=== PATIENT | male | born 1965 | race Caucasian/White ===

== ENCOUNTER 2016-08-22 15:54 | Emergency (ER) | payer MEDICAID ==
[2016-08-22 16:03] VITALS: TEMP 97.3
[2016-08-22] MEDS ORDERED: FLUORESCEIN SODIUM 1 MG STRIP OP ONE ×2 (16:47→16:59)
[2016-08-22] MEDS ORDERED: PROPARACAINE 0.5% 15 ML OPHT DROP ONE (16:47)
[2016-08-22] MEDS ORDERED: PROPARACAINE 0.5% 15 ML OPHT DROP OP ONE (16:59)
--- NOTE | 2016-08-22 17:04 | EDPHY ---
H & P Smoking Status: Light smoker Time Seen by Provider: 08/22/16 16:40 HPI/ROS: HPI: 50-year-old male presents to emergency department with chief concern right eye irritation and discharge that onset suddenly 3 days ago. Reports 9/ 10 right eye irritation associated with purulent appearing discharge upon awakening for the past 3 days. Reports associated rhinorrhea and nasal congestion x4 days with frequent rubbing of his eye. Denies fever, chills, dizziness, headache, photophobia, recent infections or facial rashes, nausea or vomiting. Does not wear contacts. Reports seasonal allergies and increased watery discharge. Has been rubbing his eyes frequently. The past medical history notable for anxiety, psychiatric disorder, asthma, seasonal allergies, Coreas's palsy affecting the right eye. Has no primary care provider ROS:10 point review of systems is negative other than as stated in HPI (Taylor Rodriguez) Physical Exam: General: Awake, alert, calm, cooperative. No acute distress. Head: Normalocephalic. Atraumatic. EENT: PERRLA. EOMI. No pallor or injection. Anicteric. No nystagmus. Visual Acuity: 20/10 right, 20/20 left Pupils:[equal round and reactive to light] [EOMI] Lids: [no edema or swelling] Skin: [no proptosis, no periorbital erythema, rash or swelling, no vesicles] Conjunctivae: [mild injection, no discharge present] Cornea: [exam with slit lamp and fluorescein shows no uptake, no evidence of corneal abrasion, dendritic lesions, cells or flare] Anterior chamber:[normal, no hyphema or hypopyon] Neck: Supple, nontender. No lymphadenopathy. Full range of motion. Respiratory: Breathing unlabored. CV: Chest nontender, atraumatic. Heart rate regular. Neuro: Alert. Oriented x 3. Speech clear. Skin: Skin warm, dry, intact. No rashes, abrasions, or lacerations. Skin turgor normal. Extremities: Full range of motion in all 4 extremities. Mental status: Interactive, appropriate, well-groomed. (Taylor Rodriguez) Constitutional: Initial Vital Signs Temperature (C) 36.3 C 08/22/16 15:59 Heart Rate 92 08/22/16 15:59 Respiratory Rate 16 08/22/16 15:59 Blood Pressure 116/77 03/20/17 15:59 O2 Sat (%) 94 08/22/16 15:59 O2 Delivery Mode Room Air Allergies/Adverse Reactions: Penicillins Allergy (Intermediate, Verified 08/22/16 16:03) Rash Home Medications: Medication Instructions Recorded Abilify 06/01/14 Clonazepam 08/22/16 Erythromycin 0.5% 1 dennis RTEYE HS #2 opht.oint 08/22/16 Gabapentin 08/22/16 Gentamicin 0.3% [Gentak 0.3% Opht 2 drop RTEYE QID #1 bottle 08/22/16 Drops (RX)] Medical Decision Making ED Course/Re-evaluation: 50-year-old male presents to emergency department with 3 days of increased redness, purulent drainage in the mornings, irritation of the right eye. No evidence of corneal abrasion or fluorescein uptake. I believe his symptoms are consistent with a conjunctivitis. This male has no primary care provider. He has a history of Coreas's palsy. I will have him follow up with Ophthalmology for recheck this week. Gentamicin eye drops and erythromycin ointment at HS x2 nights have been prescribed. Patient has been counseled regarding importance of follow-up and agrees to do so. (Taylor Rodriguez) Differential Diagnosis: Differential includes but not limited to conjunctivitis, foreign body, keratitis , scleritis, episcleritis, corneal ulcer, glaucoma, uveitis (Tayolr Rodriguez) - Data Points Medications Given: Discontinued Medications Fluorescein Sodium ([id number]) 1 mg OP EDNOW ONE Stop: 08/22/16 17:00 Last Admin: 08/22/16 17:04 Dose: 1 mg Proparacaine HCl (Alcaine 0.5%) 1 drops OP EDNOW ONE Stop: 08/22/16 17:00 Last Admin: 08/22/16 17:04 Dose: 1 drop Departure - Departure Disposition: Home, Routine, Self-Care Clinical Impression: Redness of eye, right Conjunctivitis Qualifiers: Conjunctivitis type: acute Acute conjunctivitis type: viral Laterality: right Qualified Code(s): B30.9 - Viral conjunctivitis, unspecified Condition: Good Instructions: Conjunctivitis (ED) Additional Instructions: Plan: Please follow up with the word processor listed in your paperwork Dr. Noonan within the next 1-2 days for recheck without fail, it is imperative that you do this, especially with your history of Coreas's Palsy--When you call to schedule appointment, please let the office know you are an "ER follow up" appointment" Get established with a primary care provider-call [facility], the name of [facility] and the number is in your paperwork Use antibiotic eye drops in your right eye as directed for 24 hours after symptoms resolve Use antibiotic ointment in your eye tonight and tomorrow night at bedtime-place a thin ribbon in the lower lid Return for recheck for worsening symptoms Referrals: NONE *PRIMARY CARE P,. [Primary Care Provider] - As per Instructions Rosales Noonan MD [Medical Doctor] - As per Instructions [facility] [Outside] - As per Instructions Prescriptions: Erythromycin 0.5% 1 dennis RTEYE HS #2 opht.oint Gentamicin 0.3% [Gentak 0.3% Opht Drops (RX)] 2 drop RTEYE QID #1 bottle
[2016-08-22 17:23] VITALS: BP 114/72; PULSE 82; RESP 18; O2SAT 97
== END 2016-08-22 17:23 | disposition home or self-care (01) ==
DX: B30.9 Viral conjunctivitis, unspecified (principal); F17.200 Nicotine dependence, unspecified, uncomplicated

== ENCOUNTER 2016-10-15 09:39 | Emergency (ER) | payer MEDICAID ==
[2016-10-15 09:44] VITALS: TEMP 97.7
[2016-10-15] MEDS ORDERED: LORazepam 2 MG/ML INJ IVP ONE (09:52)
[2016-10-15] MEDS ORDERED: NS 1,000 ML IV ONE (09:52)
--- NOTE | 2016-10-15 09:56 | EDPHY ---
H & P Stated Complaint: snorted meth/first time/tachycardia/anxious Time Seen by Provider: 10/15/16 09:45 HPI/ROS: Chief Complaint: Anxious, tachycardic, cough HPI: 51-year-old male presenting complaining of "not feeling good" after inhaling meth for the 1st time about 30 minutes ago. Patient states that he has had bronchitis type symptoms for the last week it is coughing yellow sputum is not been getting better. He states that he was offered meth for the 1st time this morning and tried. Since then has been feeling tachycardic, jumpy injury, generally not feeling well. He does have some pain in his upper back that this started before he took the meth has been associated with his coughing. No central chest pain. No shortness of breath. No nausea or vomiting. Some subjective chills at home. ROS: 10 point Review of Systems is negative except as noted in the HPI. PMH: Depression, asthma Social History: Positive for smoking, occasional alcohol, uses meth for the 1st time today Family History: non-contributory Physical Exam: Gen: Awake, Alert, anxious appearing, tachycardia HEENT: Nose: no rhinorrhea Eyes: PERRLA, EOMI Mouth: Moist mucosa Neck: Supple, no JVD Chest: nontender, lungs clear to auscultation Heart: S1, S2 normal, no murmur Abd: Soft, non-tender, no guarding Back: no CVA tenderness, no midline tenderness Ext: no edema, non-tender Skin: no rash Neuro: CN II-XII intact, Sensation grossly intact, Strength 5/5 in bilateral upper and lower extremities - Personal History Current Tetanus/Diphtheria Vaccine: Yes Tetanus Vaccine Date: 2014 - Medical/Surgical History Hx Asthma: Yes Hx Chronic Respiratory Disease: No Hx Diabetes: No Hx Cardiac Disease: No Hx Renal Disease: No Hx Cirrhosis: No Hx Alcoholism: No Hx HIV/AIDS: No Hx Splenectomy or Spleen Trauma: No Other PMH: Anxiety, psychiatric disorder NOS, orthoscopic knee surgery on left knee, nasal Fx, asthmatic, marijuana user. - Social History Smoking Status: Light smoker Constitutional: Initial Vital Signs Temperature (C) 36.5 C 10/15/16 09:43 Heart Rate 118 H 10/15/16 09:43 Respiratory Rate 24 H 10/15/16 09:43 Blood Pressure 115/77 10/15/16 09:43 O2 Sat (%) 99 10/15/16 09:43 O2 Delivery Mode Room Air Allergies/Adverse Reactions: Penicillins Allergy (Intermediate, Verified 10/15/16 09:42) Rash Home Medications: Medication Instructions Recorded Gabapentin 08/22/16 Medical Decision Making - Diagnostics EKG Interpretation: ECG time 9:57 a.m., sinus rhythm with a rate of 98, normal axis, normal intervals, no ST or T-wave changes. Impression: Normal ECG. Imaging Results: Imaging Impressions Chest X-Ray 10/15/16 09:53 Impression: No evidence of acute cardiopulmonary abnormality. Imaging: I viewed and interpreted images myself ED Course/Re-evaluation: 51-year-old male who is with symptoms consistent with bronchitis. Negative chest x-ray. He tried meth for the 1st time today is having an adverse effect from that. I have counseled him that perhaps this is not a good idea for him to pursue in the future. He states he agrees and does not want to try it again. Will discharge with follow-up with primary care physician. - Data Points Laboratory Results: Laboratory Results 10/15/16 09:55 10/15/16 09:55 10/15/16 10/15/16 09:55 09:55 WBC 7.56 10^3/uL 10^3/uL (3.80-9.50) RBC 4.69 10^6/uL 10^6/uL (4.40-6.38) Hgb 15.3 g/dL g/dL (13.7-17.5) Hct 44.3 % % (40.0-51.0) MCV 94.5 fL fL (81.5-99.8) MCH 32.6 pg pg (27.9-34.1) MCHC 34.5 g/dL g/dL (32.4-36.7) RDW 11.9 % % (11.5-15.2) Plt Count 179 10^3/uL 10^3/uL (150-400) MPV 9.9 fL fL (8.7-11.7) Neut % (Auto) 58.0 % % (39.3-74.2) Lymph % (Auto) 31.7 % % (15.0-45.0) [place] % (Auto) 6.6 % % (4.5-13.0) Eos % (Auto) 2.9 % % (0.6-7.6) Baso % (Auto) 0.5 % % (0.3-1.7) Nucleat RBC Rel Count 0.0 % % (0.0-0.2) Absolute Neuts (auto) 4.38 10^3/uL 10^3/uL (1.70-6.50) Absolute Lymphs (auto) 2.40 10^3/uL 10^3/uL (1.00-3.00) Absolute Monos (auto) 0.50 10^3/uL 10^3/uL (0.30-0.80) Absolute Eos (auto) 0.22 10^3/uL 10^3/uL (0.03-0.40) Absolute Basos (auto) 0.04 10^3/uL 10^3/uL (0.02-0.10) Absolute Nucleated RBC 0.00 10^3/uL 10^3/uL (0-0.01) Immature Gran % 0.3 % % (0.0-1.1) Immature Gran # 0.02 10^3/uL 10^3/uL (0.00-0.10) Sodium 138 mEq/L mEq/L (134-144) Potassium 4.0 mEq/L mEq/L (3.5-5.2) Chloride 107 mEq/L mEq/L (97-110) Carbon Dioxide 22 mEq/l mEq/l (22-31) Anion Gap 9 mEq/L mEq/L (8-16) BUN 26 mg/dL H mg/dL (7-23) Creatinine 1.0 mg/dL mg/dL (0.7-1.3) Estimated GFR > 60 Glucose 109 mg/dL H mg/dL (70-100) Calcium 9.0 mg/dL mg/dL (8.5-10.4) Medications Given: Discontinued Medications Sodium Chloride (Ns) 1,000 mls @ 0 mls/hr IV ONCE ONE PRN Reason: Wide Open Stop: 10/15/16 09:53 Last Admin: 10/15/16 10:04 Dose: 1,000 mls Lorazepam (Ativan Injection) 1 mg IVP EDNOW ONE Stop: 10/15/16 09:53 Last Admin: 10/15/16 10:11 Dose: 1 mg Departure - Departure Disposition: Home, Routine, Self-Care Clinical Impression: Bronchitis, Methamphetamine abuse Condition: Good Instructions: Acute Bronchitis (ED), Methamphetamine Abuse (ED) Additional Instructions: You may take [id number] cough and cold medicines as needed for your symptoms of bronchitis. Please do not try methamphetamine again. Follow up with primary care physician in 3-4 days for re-evaluation. Referrals: Juan Johnson MD [Medical Doctor] - As per Instructions
--- NOTE | 2016-10-15 10:00 | CPEKG ---
Heart Rate: 98 RR Interval: 612 P-R Interval: 128 QRSD Interval: 82 QT Interval: 368 QTC Interval: 470 P [place]: 68 QRS [place]: 80 T Wave [place]: 41 EKG Severity - NORMAL ECG - EKG Impression: SINUS RHYTHM Electronically Signed By: Yudy Yousif 17-Oct-2016 17:17:26
[2016-10-15 10:04] LABS: % IMMATURE GRANULYOCYTES 0.3 % (0.0-1.1); ABSOLUTE IMMATURE GRANULOCYTES 0.02 10^3/uL (0.00-0.10); ADD DIFF? NO; ADD MORPH? NO; ADD SCAN? NO; ATYPICAL LYMPHOCYTE FLAG 10 (0-99); FRAGMENT RBC FLAG 0 (0-99); HEMATOCRIT 44.3 % (40.0-51.0); HEMOGLOBIN 15.3 g/dL (13.7-17.5); LEFT SHIFT FLG 0 (0-99); LIPEMIA HEMOLYSIS FLAG 90 (0-99); MEAN CELL HEMOGLOBIN 32.6 pg (27.9-34.1); MEAN CELL HEMOGLOBIN CONCENTR. 34.5 g/dL (32.4-36.7); MEAN CELL VOLUME 94.5 fL (81.5-99.8); MEAN PLATELET VOLUME 9.9 fL (8.7-11.7); PLATELET CLUMPS FLAG 0 (0-99); PLATELET COUNT 179 10^3/uL (150-400); RED BLOOD CELL COUNT 4.69 10^6/uL (4.40-6.38); RED CELL DISTRIBUTION WIDTH 11.9 % (11.5-15.2)
[2016-10-15 10:13] VITALS: O2SAT 98
[2016-10-15 10:38] LABS: ANION GAP 9 mEq/L (8-16); CARBON DIOXIDE 22 mEq/l (22-31); CHLORIDE 107 mEq/L (97-110); GLOMERULAR FILTRATION RATE > 60; GLUCOSE 109 mg/dL (70-100); SODIUM 138 mEq/L (134-144)
[2016-10-15 11:20] VITALS: BP 110/72; PULSE 88; RESP 16
== END 2016-10-15 11:20 | disposition home or self-care (01) ==
DX: J40 Bronchitis, not specified as acute or chronic (principal); F15.10 Other stimulant abuse, uncomplicated; F17.200 Nicotine dependence, unspecified, uncomplicated
CPT/HCPCS: 96374; J2060

== ENCOUNTER 2016-10-27 18:17 | Emergency (ER) | payer MEDICAID ==
--- NOTE | 2016-10-27 18:58 | EDPHY ---
H & P Stated Complaint: stressed out wants anxiety meds also having chest pains Time Seen by Provider: 10/27/16 18:32 HPI/ROS: CHIEF COMPLAINT: Stressed, chest pain HISTORY OF PRESENT ILLNESS: Patient reports that he is here due to stress and chest pain. He states that he has been so stressed out that he does not know what day it is. He reports that he went to his psychiatrist today requesting more anxiety medications and that they declined him. He says that they sent him here for the medication. They contacted us and that he then started complaining of chest pain when they refused to provide medications for him, thus they sent him here. He denies suicidal ideation. He denies homicidal ideation. He reports the chest pain is left-sided has been present for 3 days. This is constant in duration. Mlfj-xp-[id number] pain. Radiates all over. No predictable modifying factors. Specifically no exacerbation with exertion. No diaphoresis. No shortness of breath. No recent travel or surgery. No abdominal urinary complaints. He reports history of anxiety, stress, "Manic depression." He reports taking Klonopin and Xanax in the past, as well as gabapentin. He has been off of these for nearly a month. No other associated complaints or modifying factors REVIEW OF SYSTEMS: Ten systems reviewed and are negative unless otherwise noted in the HPI PERTINENT MEDICAL HISTORY: Anxiety disorder, bipolar disorder, recent Coreas's palsy diagnosis EXAMINATION General Appearance: Alert, no distress Head: normocephalic, atraumatic Eyes: Pupils equal and round, no conjunctival pallor or injection EOMs intact. No nystagmus. ENT, Mouth: Mucous membranes moist. Uvula midline. Airway widely patent. Neck: Normal inspection, supple, non-tender Respiratory: Mild rhonchi. No wheezing, crackles or diminishment. No distress. Cardiovascular: Regular rate and rhythm. No murmur Gastrointestinal: Abdomen is soft and nontender Back: non-tender, no bony abnormalities Neurological: GCS 15. A&O, nonfocal, normal gait. Right-sided facial droop and decreased motion of the eyebrow consistent with Coreas's palsy diagnosed with Skin: Warm and dry, no rash Extremities: Nontender, no pedal edema Psychiatric: Mood and affect normal DIFFERENTIAL DIAGNOSES: Including but not limited to anxiety, stress, benzodiazepine dependence, opioid dependence, chest pain, mental health disorder MDM: 6:35 p.m. Patient reports increased level of stress. I originally ordered psychiatric laboratory studies as I was informed he was here from [facility] for psychiatric evaluation. He is not suicidal. Not homicidal. There is no M1 or container, nor does he warrant 1 at this time. Although he is stressed he does not exhibit any statements or behavior that suggest self-harm. I have ordered cardiac labs, EKG and chest x-ray for the chest pain, which I suspect is benign. 7:30 p.m. Chest x-ray and EKG are unremarkable. Labs are pending. He is in no acute distress. 8:10 p.m. Laboratory studies are negative. This includes a troponin which is sensitive as he has had pain for 3 days, constantly. Chest x-ray is negative. Vital signs remained stable. He remains feeling stressed but nonsuicidal a non homicidal. I discussed discharging him home with a prescription of hydroxyzine until he can follow up with his primary care physician/psychiatrist for further medication. He is comfortable with this plan and stable for discharge home. He will contact his psychiatrist and I will provide primary care physician from to follow up with. SUPERVISION: Patient was evaluated in conjunction with the supervising physician. Please see their note for details. Source: Patient Exam Limitations: No limitations - Personal History Current Tetanus/Diphtheria Vaccine: Yes Current Tetanus Diphtheria and Acellular Pertussis (TDAP): Yes Tetanus Vaccine Date: 2014 - Medical/Surgical History Hx Asthma: Yes Hx Chronic Respiratory Disease: No Hx Diabetes: No Hx Cardiac Disease: No Hx Renal Disease: No Hx Cirrhosis: No Hx Alcoholism: No Hx HIV/AIDS: No Hx Splenectomy or Spleen Trauma: No Other PMH: Anxiety, psychiatric disorder NOS, orthoscopic knee surgery on left knee, nasal Fx, asthmatic, marijuana user. - Social History Smoking Status: Light smoker Constitutional: Initial Vital Signs Temperature (C) 97.3 F 10/27/16 18:23 Heart Rate 78 10/27/16 18:23 Respiratory Rate 14 10/27/16 18:23 Blood Pressure 118/83 H 10/27/16 18:23 O2 Sat (%) 97 10/27/16 18:23 O2 Delivery Mode Room Air Allergies/Adverse Reactions: Penicillins Allergy (Intermediate, Verified 10/15/16 09:42) Rash Home Medications: Medication Instructions Recorded hydrOXYzine HCL [Hydroxyzine HCl] 50 mg PO Q6-8PRN PRN #20 tablet 10/27/16 Medical Decision Making - Diagnostics Imaging Results: Imaging Impressions Chest X-Ray 10/27/16 18:57 Impression: 1. No acute pulmonary disease. 2. Consider chest two views when the patient's medical condition permits. - Data Points Laboratory Results: Laboratory Results 10/27/16 19:17 10/27/16 19:17 10/27/16 10/27/16 10/27/16 19:33 19:17 19:17 WBC 5.87 10^3/uL 10^3/uL (3.80-9.50) RBC 4.48 10^6/uL 10^6/uL (4.40-6.38) Hgb 14.7 g/dL g/dL (13.7-17.5) Hct 43.4 % % (40.0-51.0) MCV 96.9 fL fL (81.5-99.8) MCH 32.8 pg pg (27.9-34.1) MCHC 33.9 g/dL g/dL (32.4-36.7) RDW 12.3 % % (11.5-15.2) Plt Count 202 10^3/uL 10^3/uL (150-400) MPV 10.4 fL fL (8.7-11.7) Neut % (Auto) 54.7 % % (39.3-74.2) Lymph % (Auto) 33.7 % % (15.0-45.0) [place] % (Auto) 7.5 % % (4.5-13.0) Eos % (Auto) 3.2 % % (0.6-7.6) Baso % (Auto) 0.7 % % (0.3-1.7) Nucleat RBC Rel Count 0.0 % % (0.0-0.2) Absolute Neuts (auto) 3.21 10^3/uL 10^3/uL (1.70-6.50) Absolute Lymphs (auto) 1.98 10^3/uL 10^3/uL (1.00-3.00) Absolute Monos (auto) 0.44 10^3/uL 10^3/uL (0.30-0.80) Absolute Eos (auto) 0.19 10^3/uL 10^3/uL (0.03-0.40) Absolute Basos (auto) 0.04 10^3/uL 10^3/uL (0.02-0.10) Absolute Nucleated RBC 0.00 10^3/uL 10^3/uL (0-0.01) Immature Gran % 0.2 % % (0.0-1.1) Immature Gran # 0.01 10^3/uL 10^3/uL (0.00-0.10) Sodium 142 mEq/L mEq/L (134-144) Potassium 4.6 mEq/L mEq/L (3.5-5.2) Chloride 106 mEq/L mEq/L (97-110) Carbon Dioxide 26 mEq/l mEq/l (22-31) Anion Gap 10 mEq/L mEq/L (8-16) BUN 28 mg/dL H mg/dL (7-23) Creatinine 1.1 mg/dL mg/dL (0.7-1.3) Estimated GFR > 60 Glucose 102 mg/dL H mg/dL (70-100) Calcium 9.2 mg/dL mg/dL (8.5-10.4) Troponin I < 0.012 ng/mL ng/mL (0-0.034) Salicylates < 1.0 mg/dL L mg/dL (2.0-20.0) Urine Opiates Screen NEGATIVE (NEGATIVE) Acetaminophen < 10 mcg/mL L mcg/mL (10.0-30.0) Urine Barbiturates NEGATIVE (NEGATIVE) Ur Phencyclidine Scrn NEGATIVE (NEGATIVE) Ur Amphetamine Screen NEGATIVE (NEGATIVE) U Benzodiazepines Scrn NEGATIVE (NEGATIVE) Urine Cocaine Screen NEGATIVE (NEGATIVE) U Marijuana (THC) Screen NEGATIVE (NEGATIVE) Ethyl Alcohol < 10 mg/dL mg/dL (0-10) Departure - Departure Disposition: Home, Routine, Self-Care Clinical Impression: Stress, Anxiety reaction Chest pain Qualifiers: Chest pain type: unspecified Qualified Code(s): R07.9 - Chest pain, unspecified Condition: Good Instructions: Stress (ED), Anxiety (ED), Chest Pain (ED) Referrals: NONE *PRIMARY CARE P,. [Primary Care Provider] - As per Instructions Noris Gonzalez MD [Medical Doctor] - As per Instructions [facility],. [Clinic] - As per Instructions Prescriptions: hydrOXYzine HCL [Hydroxyzine HCl] 50 mg PO Q6-8PRN PRN #20 tablet PRN Reason: Itching
--- NOTE | 2016-10-27 19:15 | CPEKG ---
Heart Rate: 68 RR Interval: 882 P-R Interval: 128 QRSD Interval: 86 QT Interval: 412 QTC Interval: 439 P [place]: 68 QRS [place]: 69 T Wave [place]: 49 EKG Severity - NORMAL ECG - EKG Impression: SINUS RHYTHM Electronically Signed By: Bryan Ashley 27-Oct-2016 22:49:54
[2016-10-27 19:25] LABS: % IMMATURE GRANULYOCYTES 0.2 % (0.0-1.1); ABSOLUTE IMMATURE GRANULOCYTES 0.01 10^3/uL (0.00-0.10); ADD DIFF? NO; ADD MORPH? NO; ADD SCAN? NO; ATYPICAL LYMPHOCYTE FLAG 10 (0-99); FRAGMENT RBC FLAG 0 (0-99); HEMATOCRIT 43.4 % (40.0-51.0); HEMOGLOBIN 14.7 g/dL (13.7-17.5); LEFT SHIFT FLG 0 (0-99); LIPEMIA HEMOLYSIS FLAG 90 (0-99); MEAN CELL HEMOGLOBIN 32.8 pg (27.9-34.1); MEAN CELL HEMOGLOBIN CONCENTR. 33.9 g/dL (32.4-36.7); MEAN CELL VOLUME 96.9 fL (81.5-99.8); MEAN PLATELET VOLUME 10.4 fL (8.7-11.7); PLATELET CLUMPS FLAG 0 (0-99); PLATELET COUNT 202 10^3/uL (150-400); RED BLOOD CELL COUNT 4.48 10^6/uL (4.40-6.38); RED CELL DISTRIBUTION WIDTH 12.3 % (11.5-15.2)
[2016-10-27 19:45] LABS: ANION GAP 10 mEq/L (8-16); CALCIUM 9.2 mg/dL (8.5-10.4); CARBON DIOXIDE 26 mEq/l (22-31); CHLORIDE 106 mEq/L (97-110); CREATININE 1.1 mg/dL (0.7-1.3); ETHANOL SERUM < 10 mg/dL (0-10); GLOMERULAR FILTRATION RATE > 60; GLUCOSE 102 mg/dL (70-100); POTASSIUM 4.6 mEq/L (3.5-5.2); SALICYLATE < 1.0 mg/dL (2.0-20.0); SODIUM 142 mEq/L (134-144)
[2016-10-27 19:53] LABS: TROPONIN I < 0.012 ng/mL (0-0.034)
[2016-10-27 20:48] VITALS: BP 120/77; PULSE 80; RESP 16; TEMP 97.9; O2SAT 96
== END 2016-10-27 20:47 | disposition home or self-care (01) ==
DX: R07.9 Chest pain, unspecified (principal); F41.1 Generalized anxiety disorder; F43.9 Reaction to severe stress, unspecified; J45.909 Unspecified asthma, uncomplicated; F17.200 Nicotine dependence, unspecified, uncomplicated
CPT/HCPCS: 80305; G0480

== ENCOUNTER 2016-12-13 17:42 | Emergency (ER) | payer MEDICAID ==
[2016-12-13 17:50] VITALS: RESP 16; TEMP 98.1
--- NOTE | 2016-12-13 18:43 | EDPHY ---
H & P Time Seen by Provider: 12/13/16 18:27 HPI/ROS: CHIEF COMPLAINT: Anxiety HISTORY OF PRESENT ILLNESS: Patient is a 51-year-old male who presents to the emergency department feeling anxious. The patient states that he was using meth. He states that he "burnt it" and inhaled some the black smoke. He stated this started his anxiety. It is a typical anxiety sensation. He has no chest pain. No shortness of breath. He feels mild tightness in his neck. He states that he has a chronic facial droop from Coreas's palsy. He is afraid to see a neurologist for this. No new change to his symptoms. REVIEW OF SYSTEMS: My complete review of systems is negative except as mentioned in the HPI. Past Medical/Surgical History: Includes Coreas palsy, anxiety, psychiatric disorder, asthma Past surgical history: Knee surgery Social history: Patient uses marijuana. The patient uses methamphetamine Smoking Status: Light smoker Physical Exam: vitals noted GENERAL: Anxious appearing, no acute distress, alert. HEENT: Eyes normal to inspection, normal pharynx, no signs of dehydration. NECK: No thyromegaly, no lymphadenopathy, supple. RESPIRATORY: Clear to auscultation bilaterally, no rales, rhonchi or wheezing. CVS: Regular rate and rhythm, no rubs, murmurs, or gallops. ABDOMEN: Soft, nontender, nondistended, no organomegaly. BACK: Normal to inspection, no CVA tenderness. SKIN: Normal color, no rash, warm, dry. No pallor. EXTREMITIES: No pedal edema, no calf tenderness, no Homans sign or cords, no joint swelling. NEURO/PSYCH: Anxious. Alert, normal motor sensory exam. Noted right-sided Coreas's palsy. Constitutional: Initial Vital Signs Temperature (C) 36.7 C 12/13/16 17:47 Heart Rate 82 12/13/16 17:47 Respiratory Rate 16 12/13/16 17:47 Blood Pressure 112/93 H 12/13/16 17:47 O2 Sat (%) 97 12/13/16 17:47 O2 Delivery Mode Room Air Allergies/Adverse Reactions: Penicillins Allergy (Intermediate, Verified 12/13/16 17:46) Rash Home Medications: Medication Instructions Recorded NK [No Known Home Meds] 12/13/16 Medical Decision Making ED Course/Re-evaluation: In the emergency department I discussed possible etiologies with the patient. I answered all his questions. Patient was given Ativan 1 mg orally. He was given warnings prior to leaving. He will return with worsening symptoms. Differential Diagnosis: My differential includes but is not limited to anxiety, methamphetamine use. I doubt ACS, acute NE, pneumonia, pneumothorax, pulmonary embolus, CVA, dissection , aneurysm Departure - Departure Disposition: Home, Routine, Self-Care Clinical Impression: Anxiety, Methamphetamine abuse Condition: Good Instructions: Anxiety (ED), Methamphetamine Abuse (ED) Referrals: [facility],. [Clinic] - 2-3 days, if not improved
[2016-12-13] MEDS ORDERED: LORazepam 1 MG TAB PO ONE (18:59)
[2016-12-13 19:07] VITALS: BP 128/90; PULSE 81; O2SAT 96
== END 2016-12-13 19:05 | disposition home or self-care (01) ==
DX: F41.9 Anxiety disorder, unspecified (principal); F15.10 Other stimulant abuse, uncomplicated; J45.909 Unspecified asthma, uncomplicated; F17.200 Nicotine dependence, unspecified, uncomplicated

== ENCOUNTER 2016-12-13 20:49 | Emergency (ER) | payer MEDICAID ==
--- NOTE | 2016-12-13 20:50 | EDPHY ---
H & P Time Seen by Provider: 12/13/16 20:50 Constitutional: Initial Vital Signs Temperature (C) 36.9 C 12/13/16 20:55 Heart Rate 68 12/13/16 20:55 Respiratory Rate 16 12/13/16 20:55 Blood Pressure 118/78 12/13/16 20:55 O2 Sat (%) 96 12/13/16 20:55 O2 Delivery Mode Room Air Allergies/Adverse Reactions: Penicillins Allergy (Intermediate, Verified 12/13/16 20:55) Rash Home Medications: Medication Instructions Recorded NK [No Known Home Meds] 12/13/16 Medical Decision Making ED Course/Re-evaluation: CHIEF COMPLAINT: Anxiety HISTORY OF PRESENT ILLNESS: This patient is a 51 year old male who was just discharged this evening following a visit for anxiety. EMS crews report he travelled about 1 mile from this hospital and then called 911 complaining of stroke symptoms. Stroke assessment negative. The patient has chronic facial droop secondary to Coreas's palsy, but is afraid to follow up with neurology concerning this. No other associated symptoms. No chest pain, shortness of breath, weakness. REVIEW OF SYSTEMS: A 10 point review of systems was performed and is negative with the exception of the elements mentioned in the history of present illness. PHYSICAL EXAM: HR, BP, O2 Sat, RR. Temp noted General Appearance: Alert, well hydrated, appropriate, and non-toxic appearing. Head: Atraumatic Eyes: Pupils equal, round, reactive to light Nose: Atraumatic, no rhinorrhea, clear. Throat: Mucus membranes moist. Neck: Supple Respiratory: No distress Cardiovascular: Good capillary refill all extremities. Gastrointestinal: Abdomen is soft, nontender, non-distended. Musculoskeletal: Normal active ROM of all extremities, atraumatic. Neurological: Alert, appropriate, and interactive. Nonfocal neuro exam. Skin: No rashes, good turgor, no nodules on palpation. Past medical history: Coreas's palsy, anxiety, asthma Past surgical history: Knee Family history: Noncontributory Social history: Current light smoker, marijuana, methamphetamine use. DIFFERENTIAL DIAGNOSIS: Differential for patient's anxiety includes but not limited to methamphetamine abuse, psychiatric causes. Other causes considered ruled out in workup earlier this evening. MEDICAL DECISION MAKING: This patient was just discharged and is returning for the same issue. No further medical intervention required at this point. Plan to discharge. Departure - Departure Disposition: Home, Routine, Self-Care Clinical Impression: Malingering Condition: Good Instructions: Methamphetamine Abuse (ED), Anxiety (ED) Additional Instructions: Please discontinue your drug use. Referrals: [facility],. [Clinic] - As per Instructions Report Scribed for: Bryan Ashley Report Scribed by: Mary Allison Date of Report: 12/13/16 Time of Report: 20:56
[2016-12-13 20:59] VITALS: TEMP 98.4
[2016-12-13 21:05] VITALS: BP 128/78; PULSE 70; RESP 14; O2SAT 94
== END 2016-12-13 21:04 | disposition home or self-care (01) ==
LOC: EDUNIT#
DX: Z76.5 Malingerer [conscious simulation] (principal); J45.909 Unspecified asthma, uncomplicated; F17.200 Nicotine dependence, unspecified, uncomplicated

== ENCOUNTER 2017-01-12 16:57 | Emergency (ER) | payer MEDICAID ==
[2017-01-12 17:15] VITALS: RESP 18; TEMP 98.2
[2017-01-12] MEDS ORDERED: IBUPROFEN 600 MG TAB PO ONE ×2 (18:31→18:36)
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
[2017-01-12 19:09] VITALS: BP 122/78; PULSE 77; O2SAT 94
== END 2017-01-12 19:08 | disposition home or self-care (01) ==
DX: S43.401A Unspecified sprain of right shoulder joint, initial encounter (principal); J45.909 Unspecified asthma, uncomplicated; F17.200 Nicotine dependence, unspecified, uncomplicated; V18.0XXA Pedal cycle driver injured in noncollision transport accident in nontraffic accident, initial encounter; Y93.55 Activity, bike riding
CPT/HCPCS: L3980

== ENCOUNTER 2017-01-22 10:40 | Emergency (ER) | payer MEDICAID ==
[2017-01-22 10:45] VITALS: RESP 16
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
[2017-01-22 13:16] VITALS: BP 118/63; PULSE 88; TEMP 98.1; O2SAT 98
== END 2017-01-22 13:16 | disposition home or self-care (01) ==
PROC: 0HQKXZZ Repair Right Lower Leg Skin, External Approach (ICD-10-PCS; principal; 2017-01-22)
DX: S81.811A Laceration without foreign body, right lower leg, initial encounter (principal); S06.9X1A Unspecified intracranial injury with loss of consciousness of 30 minutes or less, initial encounter; S49.91XA Unspecified injury of right shoulder and upper arm, initial encounter; J45.909 Unspecified asthma, uncomplicated; F17.200 Nicotine dependence, unspecified, uncomplicated; V18.4XXA Pedal cycle driver injured in noncollision transport accident in traffic accident, initial encounter; Y92.410 Unspecified street and highway as the place of occurrence of the external cause; Y99.8 Other external cause status; Y93.89 Activity, other specified

== ENCOUNTER 2017-03-10 14:49 | Emergency (ER) | payer MEDICAID ==
[2017-03-10 15:00] VITALS: BP 131/80; PULSE 87; RESP 18; TEMP 98.1; O2SAT 96
[2017-03-10] MEDS ORDERED: IBUPROFEN 600 MG TAB PO ONE (15:16)
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
== END 2017-03-10 15:50 | disposition home or self-care (01) ==
LOC: CED 14:49
DX: S49.91XA Unspecified injury of right shoulder and upper arm, initial encounter (principal); F17.200 Nicotine dependence, unspecified, uncomplicated; V18.0XXA Pedal cycle driver injured in noncollision transport accident in nontraffic accident, initial encounter; Y99.8 Other external cause status; Y93.55 Activity, bike riding
CPT/HCPCS: 73030-PO; A4565

== ENCOUNTER 2017-05-10 09:23 | Emergency (ER) | payer MEDICAID ==
[2017-05-10 09:28] VITALS: RESP 18; TEMP 97.9
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
[2017-05-10] MEDS ORDERED: IBUPROFEN 600 MG TAB PO ONE (11:05)
[2017-05-10 11:10] VITALS: BP 117/66; PULSE 65; O2SAT 96
== END 2017-05-10 12:00 | disposition home or self-care (01) ==
LOC: EDUNIT#
DX: S09.93XA Unspecified injury of face, initial encounter (principal); F17.200 Nicotine dependence, unspecified, uncomplicated; Y04.0XXA Assault by unarmed brawl or fight, initial encounter

== ENCOUNTER 2017-05-15 14:20 | Emergency (ER) | payer MEDICAID ==
[2017-05-15 14:31] VITALS: TEMP 98.1
[2017-05-15] MEDS ORDERED: NS 1,000 ML IV ONE ×2 (14:48→15:19)
[2017-05-15] MEDS ORDERED: ONDANSETRON 4 MG/2 ML VIAL IVP ONE (14:48)
--- NOTE | 2017-05-15 14:49 | EDPHY ---
General - History Smoking Status: Current every day smoker Narrative: CHIEF COMPLAINT: Diarrhea, "food poisoning" HISTORY OF PRESENT ILLNESS: Patient complains that "I think I have food poisoning." He says he has sudden onset of vomiting and diarrhea earlier today. He has had 3 episodes of diarrhea. Nonbloody. Associated with a mild to moderate headache. No neck pain or stiffness. No chest pain or shortness of breath. No cough. No abdominal pain. Some abdominal discomfort with diarrhea. No trauma or injury. No recent travel or camping. No known sick contacts. No meals outside of the home recently. No other associated complaints or modifying factors. REVIEW OF SYSTEMS: Ten systems reviewed and are negative unless otherwise noted in the HPI PCP: None SPECIALISTS: None PAST MEDICAL HISTORY: Reviewed with patient PAST SURGICAL HISTORY: No recent surgeries FAMILY HISTORY: Noncontributory EXAMINATION General Appearance: Alert, no distress, lying on the bed with his sunglasses on Head: normocephalic, atraumatic Eyes: Pupils equal and round, no conjunctival pallor or injection ENT, Mouth: Mucous membranes slightly dry. Uvula midline. Airway widely patent. Neck: Normal inspection, supple, non-tender. Painless range of motion all planes. No meningismus. Respiratory: Lungs are clear to auscultation Cardiovascular: Regular rate and rhythm. No murmur. Gastrointestinal: Abdomen is soft and nontender. Bowel sounds symmetric in all 4 quadrants. No tympany rigidity. No guarding. Nondistended. Neurological: A&O, cranial nerves 2-12 grossly intact. nonfocal, normal gait Skin: Warm and dry, no rash. No petechiae or purpura Extremities: Nontender, no pedal edema Psychiatric: Mood and affect normal DIFFERENTIAL DIAGNOSES: Including but not limited to gastroenteritis, gastritis, enteritis, colitis, infectious diarrhea, viral diarrhea, dehydration, cephalgia, MDM: 2:48 p.m. Diarrhea with some vomiting. Minimal abdominal pain. Mild headache. This is not a sudden-onset headache. He does not have a history examination would suggest intracranial abnormality. Abdominal exam is benign. Laboratory studies pending. IV fluid ordered. No acute distress. 4:30 p.m. Patient re-evaluated. 2 L IV fluid received. Feeling better. Minimal abdominal discomfort and no abdominal pain. No vomiting or diarrhea since time of arrival. No fever. Vital signs stable. I suspect this is likely a viral etiology. The patient be discharged home with instructions to increase fluid intake. He is instructed to contact his primary care physician. He is instructed to return here in 24 hr if no improvement or worsening symptoms. He is also instructed to return for any abdominal pain, fever or bloody stools. He is comfortable this plan and discharged home stable condition. SUPERVISION: Patient was independently examined, but I discussed the case with my secondary supervising physician Dr. Fernandez ([facility]) PHYSICIAN DOCUMENTATION: The patient was evaluated and managed by the Physician Marketing Analytics Analyst. My co- signature indicates that I have reviewed this chart and I agree with the findings and plan of care as documented. I am the secondary supervising physician. (Robin Fernandez) - Objective Vital Signs: Initial Vital Signs Temperature (C) 36.7 C 05/15/17 14:29 Heart Rate 75 05/15/17 14:29 Respiratory Rate 18 05/15/17 14:29 Blood Pressure 104/82 H 05/15/17 14:29 O2 Sat (%) 98 05/15/17 14:29 O2 Delivery Mode Room Air Allergies/Adverse Reactions: No Known Allergies Allergy (Verified 05/15/17 14:31) Home Medications: Medication Instructions Recorded Ondansetron Odt [Zofran Odt 4 mg 4 mg PO Q6 PRN #12 tab 05/15/17 (*)] Promethazine HCl [Phenergan 25mg 25 mg PO Q8 PRN #12 tab 05/15/17 (*)] Laboratory Results: Laboratory Results 05/15/17 14:20 05/15/17 14:20 05/15/17 05/15/17 14:20 14:20 WBC 8.47 10^3/uL 10^3/uL (3.80-9.50) RBC 5.24 10^6/uL 10^6/uL (4.40-6.38) Hgb 17.8 g/dL H g/dL (13.7-17.5) Hct 50.8 % % (40.0-51.0) MCV 96.9 fL fL (81.5-99.8) MCH 34.0 pg pg (27.9-34.1) MCHC 35.0 g/dL g/dL (32.4-36.7) RDW 12.1 % % (11.5-15.2) Plt Count 188 10^3/uL 10^3/uL (150-400) MPV 10.3 fL fL (8.7-11.7) Neut % (Auto) 82.3 % H % (39.3-74.2) Lymph % (Auto) 10.6 % L % (15.0-45.0) [place] % (Auto) 4.5 % % (4.5-13.0) Eos % (Auto) 1.8 % % (0.6-7.6) Baso % (Auto) 0.4 % % (0.3-1.7) Nucleat RBC Rel Count 0.0 % % (0.0-0.2) Absolute Neuts (auto) 6.98 10^3/uL H 10^3/uL (1.70-6.50) Absolute Lymphs (auto) 0.90 10^3/uL L 10^3/uL (1.00-3.00) Absolute Monos (auto) 0.38 10^3/uL 10^3/uL (0.30-0.80) Absolute Eos (auto) 0.15 10^3/uL 10^3/uL (0.03-0.40) Absolute Basos (auto) 0.03 10^3/uL 10^3/uL (0.02-0.10) Absolute Nucleated RBC 0.00 10^3/uL 10^3/uL (0-0.01) Immature Gran % 0.4 % % (0.0-1.1) Immature Gran # 0.03 10^3/uL 10^3/uL (0.00-0.10) Sodium 145 mEq/L H mEq/L (134-144) Potassium 4.0 mEq/L mEq/L (3.5-5.2) Chloride 99 mEq/L mEq/L (97-110) Carbon Dioxide 28 mEq/l mEq/l (22-31) Anion Gap 18 mEq/L H mEq/L (8-16) BUN 29 mg/dL H mg/dL (7-23) Creatinine 1.2 mg/dL mg/dL (0.7-1.3) Estimated GFR > 60 Glucose 97 mg/dL mg/dL (70-100) Calcium 10.1 mg/dL mg/dL (8.5-10.4) Total Bilirubin 0.8 mg/dL mg/dL (0.1-1.4) Conjugated Bilirubin 0.2 mg/dL mg/dL (0.0-0.5) Unconjugated Bilirubin 0.6 mg/dL mg/dL (0.0-1.1) AST 38 IU/L IU/L (17-59) ALT 40 IU/L IU/L (21-72) Alkaline Phosphatase 64 IU/L IU/L (38-126) Total Protein 8.7 g/dL H g/dL (6.3-8.2) Albumin 4.7 g/dL g/dL (3.5-5.0) Lipase 121 IU/L IU/L (23-300) Medications Given: Discontinued Medications Sodium Chloride (Ns) 1,000 mls @ 0 mls/hr IV EDNOW ONE; Wide Open PRN Reason: Protocol Stop: 05/15/17 14:49 Last Admin: 05/15/17 15:08 Dose: 1,000 mls Sodium Chloride (Ns) 1,000 mls @ 0 mls/hr IV EDNOW ONE; Wide Open PRN Reason: Protocol Stop: 05/15/17 15:20 Last Admin: 05/15/17 15:43 Dose: 1,000 mls Ondansetron HCl (Zofran) 4 mg IVP EDNOW ONE Stop: 05/15/17 14:49 Last Admin: 05/15/17 15:08 Dose: 4 mg Departure - Departure Disposition: Home, Routine, Self-Care Clinical Impression: Diarrhea Qualifiers: Diarrhea type: unspecified type Qualified Code(s): R19.7 - Diarrhea, unspecified Nausea & vomiting Qualifiers: Vomiting type: unspecified Vomiting Intractability: non-intractable Qualified Code(s): R11.2 - Nausea with vomiting, unspecified Condition: Good Instructions: Dehydration (ED), Gastroenteritis (ED) Additional Instructions: 1. Medications as prescribed as needed 2. Return to emergency department 24 hr if no improvement 3. Return to emergency department if he develops fever, bloody stools or abdominal pain Referrals: Cornell Reynolds MD [Medical Doctor] - As per Instructions Stand Alone Forms: Work Excuse Prescriptions: Ondansetron Odt [Zofran Odt 4 mg (*)] 4 mg PO Q6 PRN #12 tab PRN Reason: Nausea/Vomiting, Use 1st Promethazine HCl [Phenergan 25mg (*)] 25 mg PO Q8 PRN #12 tab PRN Reason: Nausea/Vomiting, Use 1st
[2017-05-15 14:52] LABS: % IMMATURE GRANULYOCYTES 0.4 % (0.0-1.1); ABSOLUTE IMMATURE GRANULOCYTES 0.03 10^3/uL (0.00-0.10); ADD DIFF? NO; ADD MORPH? NO; ADD SCAN? NO; ATYPICAL LYMPHOCYTE FLAG 0 (0-99); FRAGMENT RBC FLAG 0 (0-99); HEMATOCRIT 50.8 % (40.0-51.0); HEMOGLOBIN 17.8 g/dL (13.7-17.5); LEFT SHIFT FLG 0 (0-99); LIPEMIA HEMOLYSIS FLAG 90 (0-99); MEAN CELL VOLUME 96.9 fL (81.5-99.8); MEAN PLATELET VOLUME 10.3 fL (8.7-11.7); PLATELET CLUMPS FLAG 0 (0-99); PLATELET COUNT 188 10^3/uL (150-400); RED BLOOD CELL COUNT 5.24 10^6/uL (4.40-6.38); RED CELL DISTRIBUTION WIDTH 12.1 % (11.5-15.2)
[2017-05-15 15:05] LABS: ALANINE AMINOTRANSFERASE 40 IU/L (21-72); ALBUMIN 4.7 g/dL (3.5-5.0); ALKALINE PHOSPHATASE 64 IU/L (38-126); ANION GAP 18 mEq/L (8-16); ASPARTATE AMINOTRANSFERASE 38 IU/L (17-59); BILIRUBIN,TOTAL 0.8 mg/dL (0.1-1.4); BILIRUBIN-CONJUGATED 0.2 mg/dL (0.0-0.5); BILIRUBIN-UNCONJUGATED 0.6 mg/dL (0.0-1.1); CALCIUM 10.1 mg/dL (8.5-10.4); CARBON DIOXIDE 28 mEq/l (22-31); CHLORIDE 99 mEq/L (97-110); CREATININE 1.2 mg/dL (0.7-1.3); GLOMERULAR FILTRATION RATE > 60; GLUCOSE 97 mg/dL (70-100); SODIUM 145 mEq/L (134-144); TOTAL PROTEIN 8.7 g/dL (6.3-8.2)
[2017-05-15 17:14] VITALS: BP 120/78; PULSE 87; RESP 16; O2SAT 97
== END 2017-05-15 17:13 | disposition home or self-care (01) ==
LOC: EDUNIT#
DX: R19.7 Diarrhea, unspecified (principal); R11.2 Nausea with vomiting, unspecified; E86.9 Volume depletion, unspecified
CPT/HCPCS: 96374; J2405

== ENCOUNTER 2017-08-21 08:50 | Emergency (ER) | payer MEDICAID ==
--- NOTE | 2017-08-21 09:25 | EDPHY ---
General Time Seen by Provider: 08/21/17 09:14 Narrative: CHIEF COMPLAINT: Cough, sore throat, "sinus cold" HISTORY OF PRESENT ILLNESS: Patient complains of 2 days history of cough, sore throat and "sinus cold." Gradual onset. Constant duration. No chest pain. No shortness of breath. The cough is minimal but worsening. No headache. No neck pain or stiffness. No abdominal urinary complaints. He is concerned that is developing into a bronchitis. He does continue to smoke cigarettes but says he is not tolerating them due to the symptoms. No other associated complaints or modifying factors. REVIEW OF SYSTEMS: Ten systems reviewed and are negative unless otherwise noted in the HPI PCP: [facility] SPECIALISTS: None PAST MEDICAL HISTORY: Tobacco dependence, marijuana use, anxiety, psychiatric disorder NOS, osteoarthritis, asthma PAST SURGICAL HISTORY: No recent surgeries SOCIAL HISTORY: Daily smoker. Occasional marijuana user FAMILY HISTORY: Noncontributory EXAMINATION General Appearance: Alert, no distress, wearing sunglasses in his room Head: normocephalic, atraumatic Eyes: Pupils equal and round, no conjunctival pallor or injection ENT, Mouth: Mucous membranes moist. Postnasal drip. No exudate. Tonsils are symmetrically enlarged without kissing tonsils. No abnormality of the floor of the mouth. Airway is widely patent. Neck: Normal inspection, supple, non-tender. No meningeal signs. Respiratory: Scattered rhonchi and very mild expiratory wheezing. No crackles. No diminishment. No consolidation. No retractions or distress Cardiovascular: Regular rate and rhythm. No murmur Gastrointestinal: Abdomen is soft and nontender Back: non-tender, no bony abnormalities Neurological: A&O, nonfocal, normal gait Skin: Warm and dry, no rash no petechiae or purpura Extremities: Nontender, no pedal edema Psychiatric: Mood and affect normal DIFFERENTIAL DIAGNOSES: Including but not limited to bronchitis, pneumonia, upper respiratory infection , lower respiratory infection MDM: 9:25 a.m. Acute bronchitis with upper respiratory infection. Patient vitals are within normal limits. He is a smoker with some rhonchi and mild wheezing on exam. I do not feel he warrants chest x-ray, nor does he want and would refuse that if I ordered. I do feel he warrants [id number] medication, Zithromax due to smoking, and albuterol inhaler. He is comfortable this plan and would like to be discharged home at this time without any further test. He is instructed [facility] He is instructed to return here for any worsening symptoms or if his symptoms do not improve in the next 48 hr. He is comfortable with this plan and we have also discussed smoking cessation. Discharged home stable condition. SUPERVISION: This patient was independently evaluated without direct involvement of or examination by the attending physician. - History Smoking Status: Current every day smoker - Objective Vital Signs: Initial Vital Signs Temperature (C) 97.3 F 08/21/17 08:58 Heart Rate 68 08/21/17 08:58 Respiratory Rate 16 08/21/17 08:58 Blood Pressure 116/72 08/21/17 08:58 O2 Sat (%) 95 08/21/17 08:58 O2 Delivery Mode Room Air Allergies/Adverse Reactions: No Known Allergies Allergy (Verified 08/21/17 08:57) Home Medications: Medication Instructions Recorded Albuterol [Proventil Inhaler HFA 1 - 2 puffs IH Q4H PRN #1 mdi 08/21/17 (*)] Azithromycin [Zithromax] 250 mg PO DAILY #6 tab 08/21/17 Departure - Departure Disposition: Home, Routine, Self-Care Clinical Impression: Acute upper respiratory infection, Tobacco dependence Acute bronchitis Qualifiers: Bronchitis organism: unspecified organism Qualified Code(s): J20.9 - Acute bronchitis, unspecified Condition: Good Instructions: How to Stop Smoking (ED), Upper Respiratory Infection (ED), Acute Bronchitis (ED) Additional Instructions: 1. Ibuprofen 400 mg every 6-8 hours for the next 5-7 days 2. Zithromax as prescribed to completion 3. Albuterol as prescribed as needed for wheezing and shortness of breath 4. Smoking cessation recommended as discussed 5. Contact [facility] for outpatient follow-up 6. ED precautions as discussed Referrals: [facility],. [Clinic] - As per Instructions Prescriptions: Albuterol [Proventil Inhaler HFA (*)] 1 - 2 puffs IH Q4H PRN #1 mdi PRN Reason: Short Of Breath/Dyspnea Azithromycin [Zithromax] 250 mg PO DAILY #6 tab
[2017-08-21 10:03] VITALS: BP 90/74; PULSE 59; RESP 18; TEMP 97.9; O2SAT 97
== END 2017-08-21 10:03 | disposition home or self-care (01) ==
DX: J06.9 Acute upper respiratory infection, unspecified (principal); J20.9 Acute bronchitis, unspecified; J45.909 Unspecified asthma, uncomplicated; F17.210 Nicotine dependence, cigarettes, uncomplicated